=== PATIENT | female | born 1945 | race Caucasian/White ===

== ENCOUNTER 2019-08-26 08:02 | Emergency (ER) | payer MEDICARE, BC, SELFPAY ==
--- NOTE | 2019-08-26 08:16 | ED.FEMALEGU ---
HPI - Female Genitourinary General Chief complaint: Urogenital-Female Stated complaint: UTI Time Seen by Provider: 08/26/19 08:30 Source: patient and RN notes reviewed Mode of arrival: ambulatory Limitations: no limitations History of Present Illness HPI Narrative: 74-year-old female presents with concern for urinary urgency, dysuria, frequency that started on Monday. Reports at baseline she occasionally has minor urinary incontinence, reports the symptoms have worsened since Monday. She denies fever, abdominal pain, flank pain. Reports taking cranberry tablets that he is symptoms slightly. She denies abnormal vaginal discharge, abnormal vaginal bleeding. Denies nausea, vomiting. MD elicited complaint: UTI Related Data Home Medications Medication Instructions Recorded Confirmed atorvastatin 10 mg PO DAILY 08/26/19 08/26/19 levothyroxine 88 mcg PO DAILY 08/26/19 08/26/19 solifenacin 5 mg PO DAILY 08/26/19 08/26/19 Allergies Allergy/AdvReac Type Severity Reaction Status Date / Time tetracycline Allergy Severe NAUSEA/VOMI Verified 05/08/19 12:41 TING aspirin Allergy Unknown ITCHING Verified 05/08/19 12:41 AND HIVES azithromycin Allergy Unknown Nausea Verified 05/08/19 12:41 erythromycin base Allergy Unknown Rash Verified 08/26/19 08:25 Review of Systems Review of Systems: Narrative: CONSTITUTIONAL: Denies malaise, chills, sweats, or fever. CARDIOVASCULAR: Denies chest pain, palpitations, or edema. RESPIRATORY: Denies cough or dyspnea. GASTROINTESTINAL: Denies abdominal pain, nausea, vomiting, diarrhea, bloody, or mucous stools. GENITOURINARY: Reports dysuria, frequency, urgency, increased incontinence. Denies flank pain, abnormal vaginal discharge, vaginal bleeding or hematuria. MUSCULOSKELETAL: Denies back pain or myalgia. All systems reviewed & are unremarkable except as noted in HPI and below PMFSH Family History Family History (Updated 08/14/12 @ 08:28 by DOCTOR UNKNOWN) Other Cerebrovascular accident Diabetes mellitus Family history of arthritis Family history of cardiovascular disease Hypertension Social History Social History Smoking status: Never smoker Alcohol intake: current Comments At time of signature, agree with nursing past medical, surgical, social and family history. There is no relevant family history pertinent to the presenting complaint Exam Narrative: Exam Narrative: GENERAL: Well-appearing, well-nourished, and in no acute distress. HEAD: Normocephalic. EYES: PERRLA, conjunctivae clear. NECK: Supple. No lymphadenopathy CHEST: Clear to auscultation. No respiratory distress. HEART: Regular rate and rhythm. ABDOMEN: Soft, nontender upon palpation, nondistended, normal active bowel sounds, no palpable or pulsatile masses, no guarding. No CVA tenderness SKIN: Warm, dry, no rash. NEURO: Alert and oriented x3. PSYCH: Normal mood and affect Course Course Emergency Course: Patient is aware of diagnosis, understands and agrees to treatment plan. Anticipatory guidance given. Patient agrees to follow-up as directed and is aware of reasons to seek care at the emergency department. Portions of this record may have been created with voice recognition software Vital Signs Vital signs: Vital Signs Temperature 97.1 F L 08/26/19 08:25 Pulse Rate 57 L 08/26/19 08:25 Respiratory Rate 16 08/26/19 08:25 Blood Pressure 122/63 08/26/19 08:25 Pulse Oximetry 99 08/26/19 08:25 Temperature 97.1 F L 08/26/19 08:25 Pulse Rate 57 L 08/26/19 08:25 Respiratory Rate 16 08/26/19 08:25 Blood Pressure 122/63 08/26/19 08:25 Pulse Oximetry 99 08/26/19 08:25 Reviewed. MDM - Female Genitourinary MDM Narrative Medical decision making narrative: Exam findings and UA show no acute concerns or changes; patient is non-toxic appearing and is in no distress. Patient is appropriate for outpatient treatment and follow-up. Differential Diagnosis Different
[2019-08-26 08:25] VITALS: BP 122/63; PULSE 57; RESP 16; TEMP 36.2; O2SAT 99
== END 2019-08-26 08:47 | disposition home or self-care (01) ==
PROVIDERS: Emergency Provider Nurse Practitioner
DX: R30.0 Dysuria (principal); R35.0 Frequency of micturition; R39.15 Urgency of urination; E78.00 Pure hypercholesterolemia, unspecified; I10 Essential (primary) hypertension; M19.90 Unspecified osteoarthritis, unspecified site; Z96.651 Presence of right artificial knee joint; E03.9 Hypothyroidism, unspecified
CPT/HCPCS: 87077; 87086; 87088; 87186; 99213; G0463

== ENCOUNTER 2020-08-30 18:09 | Emergency (ER) | payer MEDICARE, BC, SELFPAY ==
--- NOTE | 2020-08-30 18:15 | ED.FEMALEGU ---
HPI - Female Genitourinary General Chief complaint: Urogenital-Female Stated complaint: bladder infection Time Seen by Provider: 08/30/20 18:15 Source: patient and old records reviewed Mode of arrival: ambulatory Limitations: no limitations History of Present Illness HPI Narrative: 75 yo female presents to the [facility] with complaints of I think I have a UTI. Patient reports yesterday she started with frequency and urgency. Today she had a small bout of nausea and suprapubic pressure/pain that has been intermittent. Denies fevers. No abdominal pain. No vomiting. No chest pain. No back pain. Related Data Home Medications Medication Instructions Recorded Confirmed atorvastatin 10 mg PO DAILY 08/26/19 08/30/20 levothyroxine 88 mcg PO DAILY 08/26/19 08/30/20 solifenacin 5 mg PO DAILY 08/26/19 08/30/20 Allergies Allergy/AdvReac Type Severity Reaction Status Date / Time tetracycline Allergy Severe NAUSEA/VOMI Verified 05/08/19 12:41 TING aspirin Allergy Unknown ITCHING Verified 05/08/19 12:41 AND HIVES azithromycin Allergy Unknown Nausea Verified 05/08/19 12:41 erythromycin base Allergy Unknown Rash Verified 08/26/19 08:25 Review of Systems Review of Systems: Narrative: CONSTITUTIONAL: Denies fever, chills, or sweats. CARDIOVASCULAR: Denies chest pain, palpitations, or edema. RESPIRATORY: Denies cough or dyspnea. GASTROINTESTINAL: Denies abdominal pain, vomiting, or diarrhea. Reports mild nausea at lunch today GENITOURINARY: Reports dysuria. denies hematuria. MUSCULOSKELETAL: Denies back pain, joint pain, or myalgia. NEUROLOGIC: Denies headache, numbness, or weakness. All other systems reviewed are negative, except as documented in HPI. [facility] Family History Family History Other Cerebrovascular accident Diabetes mellitus Family history of arthritis Family history of cardiovascular disease Hypertension Social History Social History Smoking status: Never smoker Alcohol intake: current Gender identity (if verbalized by the patient): Female Comments At the time of my signature, I reviewed and agree with the nursing past medical, surgical, social, and family history. There is no relevant family history pertinent to the patient complaint. Exam Narrative: Exam Narrative: GENERAL: This is a well-nourished, well-developed patient, in no apparent distress. HEAD: normocephalic, atraumatic. EYES: PERRL. Sclera clear/white. Vision is grossly intact. NECK: Neck supple, non-tender without lymphadenopathy. CARDIOVASCULAR: Regular rate and rhythm without murmurs, gallops, or rubs. RESPIRATORY: Clear to auscultation. Breath sounds equal bilaterally. No wheezes, rales, or rhonchi. GASTROINTESTINAL: Abdomen soft, non-tender, nondistended. No guarding SKIN: warm, intact with no suspicious lesions or rash, good texture and turgor. NEURO: awake, alert, and oriented to person, place and time. BACK: Nontender without deformity or crepitance. No CVA tenderness. Course Course Emergency Course: Discussed results with patient in regards to the urine, will send off for culture as well. Patient appears nontoxic, vitals are stable. Patient had no other complaints except for the urinary symptoms. Discussed treatment plan to include antibiotic which patient verbalized understanding Vital Signs Vital signs: Vital Signs Temperature 98 F 08/30/20 18:23 Pulse Rate 78 08/30/20 18:23 Respiratory Rate 20 08/30/20 18:23 Blood Pressure 115/89 08/30/20 18:23 Pulse Oximetry 98 08/30/20 18:23 Temperature 98 F 08/30/20 18:23 Pulse Rate 78 08/30/20 18:23 Respiratory Rate 20 08/30/20 18:23 Blood Pressure 115/89 08/30/20 18:23 Pulse Oximetry 98 08/30/20 18:23 Reviewed, within defined limits MDM - Female Genitourinary MDM Narrative Medical decision making narrative: Discharge instructi
[2020-08-30 18:23] VITALS: BP 115/89; PULSE 78; RESP 20; TEMP 36.6; O2SAT 98
== END 2020-08-30 18:39 | disposition home or self-care (01) ==
PROVIDERS: Emergency Provider Nurse Practitioner; PCP Internal Medicine
DX: N39.0 Urinary tract infection, site not specified (principal); E78.00 Pure hypercholesterolemia, unspecified; I10 Essential (primary) hypertension; M19.90 Unspecified osteoarthritis, unspecified site; E03.9 Hypothyroidism, unspecified
CPT/HCPCS: 81003; 87086; 87088; 99213; G0463

== ENCOUNTER 2021-06-27 12:02 | Emergency (ER) | payer MEDICARE, BC, SELFPAY ==
--- NOTE | ~2021-06-27 | XR_ITS ---
EXAMINATION: XR knee LT min 4V DATE: 06/27/2021 12:31 INDICATION: Left knee pain. Fall. TECHNIQUE: 4 views of left knee were obtained. COMPARISON: None. FINDINGS: Bone alignment is normal. No fracture. There is mild tricompartmental osteoarthritis. There is a moderate-sized knee joint effusion. IMPRESSION: 1. Mild left knee osteoarthritis. 2. Moderate-sized left knee joint effusion. Reviewed, dictated and finalized at location A. [employer]
[2021-06-27 12:15] VITALS: BP 141/104; PULSE 62; RESP 16; TEMP 36.6; O2SAT 100
--- NOTE | 2021-06-27 12:42 | ED.LOWEXIN ---
HPI - Extremity Injury (Lower) General Chief Complaint: Extremity Injury, Lower Stated Complaint: Lt Knee Pain due to fall Time Seen by Provider: 06/27/21 12:35 Source: patient, family, RN notes reviewed and old records reviewed Mode of arrival: ambulatory Limitations: no limitations History of Present Illness HPI Narrative: 76 year old female presents to [facility] using cane with complaint of sustaining a fall in her garage last night hitting her left knee. She reports that she thinks she missed the last step going into her garage and fell onto her left knee, denies hitting her head, no LOC, or any other known injuries. Patient has anterior left knee tenderness with some abrasions noted on her anterior left knee. She reports that pain is aggravated with bending and ambulation. MD complaint: knee injury (left) Type of Injury: blunt Place: home Treatments prior to arrival: cold therapy, NSAIDS and other (using brace to left knee) Related Data Home Medications Medication Instructions Recorded Confirmed atorvastatin 10 mg PO DAILY 08/26/19 06/27/21 levothyroxine 88 mcg PO DAILY 08/26/19 06/27/21 solifenacin 5 mg PO DAILY 08/26/19 06/27/21 trazodone 50 mg PO HS 06/27/21 06/27/21 Allergies Allergy/AdvReac Type Severity Reaction Status Date / Time tetracycline Allergy Severe NAUSEA/VOMI Verified 06/27/21 12:21 TING aspirin Allergy Intermediate ITCHING Verified 06/27/21 12:21 AND HIVES azithromycin Allergy Mild Nausea Verified 06/27/21 12:21 erythromycin base Allergy Mild Rash Verified 06/27/21 12:21 Review of Systems Review of Systems: CONSTITUTIONAL: Denies fever, chills, or sweats. EYES: Denies visual changes, redness, or discharge. ENT: Denies rhinorrhea, congestion, sore throat, or otalgia. CARDIOVASCULAR: Denies chest pain, palpitations, or edema. RESPIRATORY: Denies cough or dyspnea. GASTROINTESTINAL: Denies abdominal pain, nausea, vomiting, or diarrhea. GENITOURINARY: Denies dysuria or hematuria. SKIN: Denies rash or itching. MUSCULOSKELETAL: Chronic back pain, left knee joint pain, or myalgia. NEUROLOGIC: Denies headache, numbness, or weakness. PSYCHIATRIC: Denies anxiety or depression. All systems reviewed & are unremarkable except as noted in HPI and below PMFSH Past Medical History Medical History (Updated 06/30/21 @ 07:35 by Yady Farah NP) Arthritis Back pain Cataracts, both eyes Chronic right hip pain Elevated cholesterol Hypothyroid Kidney stones Trochanteric bursitis, right hip Surgical History Surgical History (Updated 06/30/21 @ 07:21 by Yady Farah NP) H/O repair of left rotator cuff H/O tubal ligation History of cholecystectomy History of tonsillectomy History of total right knee replacement (TKR) Status post right rotator cuff repair Family History Family History Other Cerebrovascular accident Diabetes mellitus Family history of arthritis Family history of cardiovascular disease Hypertension Social History Social History (Updated 06/30/21 @ 07:22 by Yady Farah NP) Smoking status: Never smoker Alcohol intake: current Alcohol use details: rare social Substance use: never Living arrangements: with family Gender identity (if verbalized by the patient): Female Comments At time of signature, agree with nursing past medical, surgical, social and family history. There is no relevant family history pertinent to the presenting complaint Exam Narrative: GENERAL: Well-appearing, well-nourished, and in no acute distress. HEAD: Normocephalic, atraumatic. EYES: PERRLA and EOMI. ENT: Nares clear, no rhinorrhea or epistaxis. Mucous membranes moist.TM's normal with good light reflex, throat pink with no lesions or exudates, tonsils absent NECK: Supple.no lymphadenopathy CHEST: Clear to auscultation. No respiratory distress.SAO2 100% on room air HEART: Regular rate and rhythm. No murmur
[2021-06-27 13:00] VITALS: BP 138/60
== END 2021-06-27 13:09 | disposition home or self-care (01) ==
PROVIDERS: Emergency Provider Registered Nurse; PCP Internal Medicine
DX: M25.462 Effusion, left knee (principal); S80.02XA Contusion of left knee, initial encounter; W19.XXXA Unspecified fall, initial encounter; M19.90 Unspecified osteoarthritis, unspecified site; E78.00 Pure hypercholesterolemia, unspecified; E03.9 Hypothyroidism, unspecified; Z96.651 Presence of right artificial knee joint; H26.9 Unspecified cataract
CPT/HCPCS: 73564; 99213; G0463

== ENCOUNTER 2022-06-17 11:53 | Emergency (ER) | payer MEDICARE, BC, SELFPAY ==
--- NOTE | 2022-06-17 12:07 | ED.URI ---
HPI - URI/Sore Throat General Chief Complaint: Upper Respiratory Infection Stated Complaint: cough,runny nose Time Seen by Provider: 06/17/22 12:18 Source: patient, RN notes reviewed and old records reviewed Mode of arrival: ambulatory Limitations: no limitations History of Present Illness HPI Narrative: 77-year-old presents to the [facility] complaints of cough and right nose for almost 2 weeks. States several days ago she had 1 episode vomiting diarrhea but none since. Denies any fevers, shortness of breath, chest pain. Related Data Home Medications Medication Instructions Recorded Confirmed atorvastatin 10 mg tablet 10 mg PO DAILY 08/26/19 06/17/22 levothyroxine 88 mcg tablet 88 mcg PO DAILY 08/26/19 06/17/22 solifenacin 5 mg tablet 5 mg PO DAILY 08/26/19 06/17/22 benzonatate 200 mg capsule 200 mg PO DAILY 06/17/22 06/17/22 Allergies Allergy/AdvReac Type Severity Reaction Status Date / Time tetracycline Allergy Severe NAUSEA/VOMI Verified 06/17/22 12:17 TING aspirin Allergy Intermediate ITCHING Verified 06/17/22 12:17 AND HIVES azithromycin Allergy Mild Nausea Verified 06/17/22 12:17 erythromycin base Allergy Mild Rash Verified 06/17/22 12:17 Review of Systems Review of Systems: All systems reviewed & are unremarkable except as noted in HPI and below Constitutional: Constitutional: Reports no additional constitutional complaints Eyes: Eyes: Reports no additional eye complaints ENT: Reports as per HPI and Reports nasal congestion Cardiovascular: Cardiovascular: Reports no additional cardiovascular complaints, Denies chest pain and Denies dyspnea Respiratory: Respiratory: Reports as per HPI, Denies chest congestion, Reports cough and Denies dyspnea Gastrointestinal: Gastrointestinal: Reports no additional gastrointestinal complaints, Denies abdominal pain, Denies nausea and Denies vomiting Musculoskeletal: Musculoskeletal: Reports no additional musculoskeletal complaints Integumentary/Breasts: Skin/Breast: Reports system reviewed and no additional complaints, except as docu Neurologic: Reports system reviewed and no additional complaints, except as documented Psychiatric: Psychiatric: Reports no additional psychiatric complaints Allergic/Immunologic: Allergic/Immunologic: Reports no additional allergic/immunologic complaints PMFSH Past Medical History Medical History Arthritis Back pain Cataracts, both eyes Chronic right hip pain Elevated cholesterol Hypothyroid Kidney stones Trochanteric bursitis, right hip Surgical History Surgical History H/O repair of left rotator cuff H/O tubal ligation History of cholecystectomy History of tonsillectomy History of total right knee replacement (TKR) Status post right rotator cuff repair Status post total right knee replacement Family History Family History Other Cerebrovascular accident Diabetes mellitus Family history of arthritis Family history of cardiovascular disease Hypertension Social History Social History Alcohol intake: current Alcohol use details: rare social Substance use: never Gender identity (if verbalized by the patient): Female Comments At the time of my signature, I reviewed and agree with the nursing past medical, surgical, social, and family history. There is no relevant family history pertinent to the patient complaint. Exam Const: General: cooperative, healthy appearing, comfortable, no acute distress, well developed, alert, average body habitus and well nourished Nutritional Appearance: average body habitus and well nourished Orientation/consciousness: patient oriented x3 Limitations: no limitations HENMT: Head: normal to inspection Ears: hearing grossly normal bilaterally and e
[2022-06-17 12:11] VITALS: BP 104/60; PULSE 64; RESP 18; TEMP 36.2; O2SAT 100
== END 2022-06-17 12:31 | disposition home or self-care (01) ==
PROVIDERS: Emergency Provider Nurse Practitioner; PCP Internal Medicine
DX: J40 Bronchitis, not specified as acute or chronic (principal); E03.9 Hypothyroidism, unspecified
CPT/HCPCS: 99213; G0463

== ENCOUNTER 2022-07-30 11:28 | Emergency (ER) | payer MEDICARE, BC, SELFPAY ==
[2022-07-30 11:50] VITALS: BP 110/60; PULSE 92; RESP 18; TEMP 37.3; O2SAT 99
--- NOTE | 2022-07-30 12:37 | ED.URI ---
HPI - URI/Sore Throat General Chief Complaint: Upper Respiratory Infection Stated Complaint: Cough,Sore Throat Time Seen by Provider: 07/30/22 12:00 Source: patient Mode of arrival: ambulatory Limitations: no limitations History of Present Illness HPI Narrative: Asya is a 77-year-old female patient presenting to clinic today with complaints of cough and sore throat x3 days. She reports that she has been exposed to her grandson has had strep. She is concerned that she may have strep. She denies any fever but does have some chills and body aches. MD elicited complaint: cough, sore throat and nasal congestion Related Data Home Medications Medication Instructions Recorded Confirmed atorvastatin 10 mg tablet 10 mg PO DAILY 08/26/19 07/30/22 levothyroxine 88 mcg tablet 88 mcg PO DAILY 08/26/19 07/30/22 solifenacin 5 mg tablet 5 mg PO DAILY 08/26/19 07/30/22 Allergies Allergy/AdvReac Type Severity Reaction Status Date / Time tetracycline Allergy Severe NAUSEA/VOMI Verified 07/30/22 11:58 TING aspirin Allergy Intermediate ITCHING Verified 07/30/22 11:58 AND HIVES azithromycin Allergy Mild Nausea Verified 07/30/22 11:58 erythromycin base Allergy Mild Rash Verified 07/30/22 11:58 Review of Systems Review of Systems: Pertinent positives per HPI. Patient denies any fever, rash, headache, visual changes, dizziness, cough, shortness of breath, chest pain, palpitations, nausea, vomiting, diarrhea, constipation, abdominal pain, or any urinary issues. [facility] Past Medical History Medical History Arthritis Back pain Cataracts, both eyes Chronic right hip pain Elevated cholesterol Hypothyroid Kidney stones Trochanteric bursitis, right hip Surgical History Surgical History H/O repair of left rotator cuff H/O tubal ligation History of cholecystectomy History of tonsillectomy History of total right knee replacement (TKR) Status post right rotator cuff repair Status post total right knee replacement Family History Family History Other Cerebrovascular accident Diabetes mellitus Family history of arthritis Family history of cardiovascular disease Hypertension Social History Social History Alcohol intake: current Alcohol use details: rare social Substance use: never Living arrangements: with family Gender identity (if verbalized by the patient): Female Comments At the time of my signature, I reviewed and agree with the nursing past medical, surgical, social, and family history. There is no relevant family history pertinent to the patient complaint. Exam Narrative: General: Well-developed, well nourished, in no apparent distress Head: Normocephalic, atraumatic Eyes: Pupils equally round and reactive to light bilaterally, EOM intact, sclera and conjunctive clear, no discharge, lids normal Ears: TMs intact and clear, ear canals clear, no drainage, grossly hearing normal. Nose: Nares patent, clear nasal discharge, no inflammation, no sinus tenderness. Mouth: Oral pharynx without lesions or masses, good dentition, MMM. Postnasal drip, oropharynx red Neck: Supple, trachea midline, mild enlargement of anterior cervical nodes, no thyroid masses or goiter palpable. Cardio: Regular rate and rhythm, s1 and s2 normal, systolic murmur grade 3/6 appreciated. Resp: Clear to auscultation bilaterally, no rhonchi, rales, wheezing or rubs Course Course Emergency Course: Portions of this record may have been created with voice recognition software. Level of Care: Express Care Visit Vital Signs Vital signs: Vital Signs Temperature 37.3 C 07/30/22 11:50 Pulse Rate 92 07/30/22 11:50 Respiratory Rate 18 07/30/22 11:50 Blood Pressure 110/60 07/30/22 11
== END 2022-07-30 12:46 | disposition home or self-care (01) ==
PROVIDERS: Emergency Provider Nurse Practitioner Family; PCP Internal Medicine
DX: U07.1 COVID-19 (principal); M19.90 Unspecified osteoarthritis, unspecified site; E78.00 Pure hypercholesterolemia, unspecified; E03.9 Hypothyroidism, unspecified; H26.9 Unspecified cataract; Z96.651 Presence of right artificial knee joint
CPT/HCPCS: 87081; 87426; 87880; 99213; C9803; G0463

== ENCOUNTER 2023-05-20 09:24 | Emergency (ER) | payer MEDICARE, BC, SELFPAY ==
[2023-05-20 10:02] VITALS: BP 124/61; PULSE 67; RESP 20; TEMP 36.4; O2SAT 100
--- NOTE | 2023-05-20 10:12 | ED.URI ---
HPI - URI/Sore Throat General Chief Complaint: Upper Respiratory Infection Stated Complaint: cough,congestion Time Seen by Provider: 05/20/23 10:05 Source: patient Mode of arrival: ambulatory Limitations: no limitations History of Present Illness HPI Narrative: Asya is a 77-year-old female patient presenting to the clinic today with complaints of cough and congestion x1 week. She denies any shortness of breath or chest pain currently. Denies any fever or chills. MD elicited complaint: sore throat and nasal congestion Related Data Home Medications Medication Instructions Recorded Confirmed atorvastatin 10 mg tablet 10 mg PO DAILY 08/26/19 07/30/22 levothyroxine 88 mcg tablet 88 mcg PO DAILY 08/26/19 07/30/22 solifenacin 5 mg tablet 5 mg PO DAILY 08/26/19 07/30/22 Allergies Allergy/AdvReac Type Severity Reaction Status Date / Time tetracycline Allergy Severe NAUSEA/VOMI Verified 07/30/22 11:58 TING aspirin Allergy Intermediate ITCHING Verified 07/30/22 11:58 AND HIVES azithromycin Allergy Mild Nausea Verified 07/30/22 11:58 erythromycin base Allergy Mild Rash Verified 07/30/22 11:58 Review of Systems Review of Systems: Pertinent positives per HPI. Patient denies any fever, chills, rash, headache, visual changes, dizziness,shortness of breath, chest pain, palpitations, nausea, vomiting, diarrhea, constipation, abdominal pain, or any urinary issues. COUNT INCLUDES [facility] Past Medical History Medical History Arthritis Back pain Cataracts, both eyes Chronic right hip pain Elevated cholesterol Hypothyroid Kidney stones Trochanteric bursitis, right hip Surgical History Surgical History H/O repair of left rotator cuff H/O tubal ligation History of cholecystectomy History of tonsillectomy History of total right knee replacement (TKR) Status post right rotator cuff repair Status post total right knee replacement Family History Family History Other Cerebrovascular accident Diabetes mellitus Family history of arthritis Family history of cardiovascular disease Hypertension Social History Social History Alcohol intake: current Alcohol use details: rare social Substance use: never Living arrangements: with family Gender identity (if verbalized by the patient): Female Comments At the time of my signature, I reviewed and agree with the nursing past medical, surgical, social, and family history. There is no relevant family history pertinent to the patient complaint. Exam Narrative: General: Well-developed, well nourished, in no apparent distress Head: Normocephalic, atraumatic Eyes: Pupils equally round and reactive to light bilaterally, EOM intact, sclera and conjunctive clear, no discharge, lids normal Ears: TMs intact and congested, ear canals clear, no drainage, grossly hearing normal. Nose: Nares patent, clear nasal discharge, no inflammation, no sinus tenderness. Mouth: Oral pharynx without lesions or masses, good dentition, MMM. Postnasal drip Neck: Supple, trachea midline, no enlargement of anterior or posterior cervical nodes, no thyroid masses or goiter palpable. Cardio: Regular rate and rhythm, s1 and s2 normal, no murmur appreciated. Resp: Clear to auscultation bilaterally, no rhonchi, rales, wheezing or rubs Course Course Emergency Course: Portions of this record may have been created with voice recognition software. Level of Care: Express Care Visit Vital Signs Vital signs: Vital Signs Temperature 36.4 C L 05/20/23 10:02 Pulse Rate 67 05/20/23 10:02 Respiratory Rate 20 05/20/23 10:02 Blood Pressure 124/61 05/20/23 10:02 Pulse Oximetry 100 05/20/23 10:02 Oxygen Delivery Room Air 05/20/23 10:02 Temperature
== END 2023-05-20 10:22 | disposition home or self-care (01) ==
PROVIDERS: Emergency Provider Nurse Practitioner Family; PCP Internal Medicine
DX: J06.9 Acute upper respiratory infection, unspecified (principal); E03.9 Hypothyroidism, unspecified
CPT/HCPCS: 99213; G0463

== ENCOUNTER 2023-05-28 10:16 | Emergency (ER) | payer MEDICARE, BC, SELFPAY ==
--- NOTE | ~2023-05-28 | XR_ITS ---
EXAMINATION: XR chest 2V DATE: 05/28/2023 11:42 INDICATION: Cough. TECHNIQUE: Frontal and lateral views of the chest were obtained. COMPARISON: Chest 2 views 02/22/2017 FINDINGS: There is no pneumonia, pleural effusion, or pneumothorax. The heart size is normal. There a re suture anchors in the humeral heads. IMPRESSION: 1. No acute cardiopulmonary disease. Reviewed, dictated and finalized at location A. ER MANAGER
[2023-05-28 11:00] VITALS: BP 125/69; PULSE 74; RESP 16; TEMP 36.3; O2SAT 100
[2023-05-28 11:06] VITALS: BP 125/69; PULSE 74; RESP 16; TEMP 36.3; O2SAT 100
--- NOTE | 2023-05-28 11:23 | ED.GENADULT ---
HPI - General Adult General Chief complaint: Upper Respiratory Infection Stated complaint: cough Time Seen by Provider: 05/28/23 11:23 Source: patient Mode of arrival: ambulatory Limitations: no limitations History of Present Illness HPI narrative: 78-year-old female [facility] with persistent cough that started 2 weeks ago. She reported to the urgent care on 05/20 and was prescribed prednisone and Tessalon Perles. Patient states that the cough has been persistent despite treatment and she has been having increased shortness of breath at rest. patient reports that she is due to have a cardiac procedure on Tuesday 06/05 and she has had shortness of breath easily with her heart problems but has gotten worse over the last week. patient has not taken anything else at this time besides what she has been prescribed on 05/20. patient denies fever, chills, body aches, chest pain and diarrhea. patient states she is scheduled for a cardiac catheterization on 06/05 for aortic stenosis. Related Data Home Medications Medication Instructions Recorded Confirmed atorvastatin 10 mg tablet 10 mg PO DAILY 08/26/19 05/28/23 levothyroxine 88 mcg tablet 88 mcg PO DAILY 08/26/19 05/28/23 solifenacin 5 mg tablet 5 mg PO DAILY 08/26/19 05/28/23 omeprazole 40 mg capsule,delayed 40 mg PO DAILY 05/28/23 05/28/23 release Allergies Allergy/AdvReac Type Severity Reaction Status Date / Time azithromycin AdvReac Intermediate Nausea Verified 05/28/23 11:03 tetracycline AdvReac Intermediate NAUSEA/VOMI Verified 05/28/23 11:03 TING aspirin AdvReac Mild ITCHING Verified 05/28/23 11:03 AND HIVES erythromycin base AdvReac Mild Rash Verified 05/28/23 11:03 Review of Systems Review of Systems: CONSTITUTIONAL: Denies fever, chills, or sweats. EYES: Denies visual changes, redness, or discharge. ENT: Denies rhinorrhea, congestion, sore throat, or otalgia. CARDIOVASCULAR: Denies chest pain, palpitations, or edema. RESPIRATORY: positive cough has remained constant and dyspnea that has worsened over the last week. GASTROINTESTINAL: Denies abdominal pain, nausea, vomiting, or diarrhea. GENITOURINARY: Denies dysuria or hematuria. SKIN: Denies rash or itching. MUSCULOSKELETAL: Denies back pain, joint pain, or myalgia. NEUROLOGIC: Denies headache, numbness, or weakness. PSYCHIATRIC: Denies anxiety or depression. [facility] Past Medical History Medical History Arthritis Back pain Cataracts, both eyes Chronic right hip pain Elevated cholesterol Hypothyroid Kidney stones Trochanteric bursitis, right hip Surgical History Surgical History H/O repair of left rotator cuff H/O tubal ligation History of cholecystectomy History of tonsillectomy History of total right knee replacement (TKR) Status post right rotator cuff repair Status post total right knee replacement Family History Family History Other Cerebrovascular accident Diabetes mellitus Family history of arthritis Family history of cardiovascular disease Hypertension Social History Social History Alcohol intake: current Alcohol use details: rare social Substance use: never Living arrangements: with family Gender identity (if verbalized by the patient): Female Comments At the time of my signature I agree with nursing past medical history, surgical, social, and family history. There is no relevant family history pertinent to the presenting complaint. Exam Narrative: GENERAL: Well-appearing, well-nourished, and in no acute distress. HEAD: Normocephalic, atraumatic. EYES: PERRLA and EOMI. ENT: Nares clear, no rhinorrhea or epistaxis. Mucous membranes moist. NECK: Supple. No lymphadenopathy CHEST: positive shortness of breath at r
--- NOTE | 2023-05-28 12:18 | ECG_ITS ---
Measurements Intervals [place] Rate: 65 P: 65 [place]: 134 QRS: 31 QRSD: 86 T: 75 QT: 400 QTc: 416 Interpretive Statements SINUS RHYTHM DELAYED PRECORDIAL R/S TRANSITION BORDERLINE ECG NO PREVIOUS ECG AVAILABLE FOR COMPARISON Electronically Signed On 05-28-2023 14:31:38 FENCE SETTER by Negro Grady D.O.
== END 2023-05-28 12:30 | disposition home or self-care (01) ==
PROVIDERS: Emergency Provider Nurse Practitioner Family; PCP Internal Medicine
DX: J40 Bronchitis, not specified as acute or chronic (principal); E03.9 Hypothyroidism, unspecified; Z79.899 Other long term (current) drug therapy
CPT/HCPCS: 71046; 93005; 99213; G0463

== ENCOUNTER 2023-05-30 13:25 | Outpatient (CLI) | payer MEDICARE, BC, SELFPAY ==
[2023-05-30 14:00] LABS: Hematocrit 39.7 % (37.0-47.0); Hemoglobin 13.8 g/dL (12.0-15.0); Mean Corpuscular HGB Conc 34.8 g/dl (32-36); Mean Corpuscular Hemoglobin 32.9 pg (26-34); Mean Corpuscular Volume 94.7 fl (80-100); Mean Platelet Volume 9.2 fl (7.4-10.4); Platelet Count Result 198 k/mm3 (150-375); Red Blood Count 4.19 M/mm3 (4.2-5.4); Red Cell Distribution Width 12.1 % (11.5-14.5); White Blood Count 5.9 K/mm3 (4.5-10.0)
[2023-05-30 14:11] LABS: Anion Gap 9 mmol/L (8-16); Blood Urea Nitrogen 16 mg/dL (7-17); Calcium 9.1 mg/dL (8.4-10.2); Carbon Dioxide 26 mmol/L (22-30); Chloride 105 mmol/L (98-107); Estimated Glomerular Filt Rate > 60; Glucose 121 mg/dL (65-110); Sodium 140 mmol/L (137-145)
== END 2023-05-30 13:26 | disposition home or self-care (01) ==
LOC: ANHLAB 13:29
PROVIDERS: PCP Internal Medicine; Visit Provider Internal Medicine Interventional Cardiology
DX: I35.0 Nonrheumatic aortic (valve) stenosis (principal)
CPT/HCPCS: 36415; 80048; 85027

== ENCOUNTER 2023-10-30 12:54 | Emergency (ER) | payer MEDICARE, BC, SELFPAY ==
[2023-10-30] VITALS (19 sets, daily range): BP systolic 78–111; BP diastolic 55–76; PULSE 65–89; RESP 12–20; TEMP 36.4; O2SAT 96–100
--- NOTE | ~2023-10-30 | CT_ITS ---
EXAMINATION: CTA chest PE protocol DATE: 10/30/2023 15:38 INDICATION: Syncopal episode. TECHNIQUE: Computed tomography (CT) pulmonary angiogram of the chest was performed with 100 mL Omnipa que-350 intravenous contrast. Additional 3D reconstructions utilizing coronal maximum intensity proje ction (MIP) were performed. Automated exposure control and iterative reconstruction technique were em ployed. The dose-length product was 195.11 mGy-cm. COMPARISON: None FINDINGS: No pulmonary embolism. Elevation of left hemidiaphragm with left basilar compressive atelectasis. No pneumonia, pulmonary edema, pleural effusion or pneumothorax. Heart size is normal. Atherosclerotic c oronary artery calcification is unchanged prior median sternotomy and coronary artery bypass grafting . There are also changes of prior aortic valve repair. There are retained epicardial pacemaker leads. No pericardial effusion. Thoracic aorta is normal in caliber with no dissection. No pathologically e nlarged thoracic lymphadenopathy. 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 Mild thoracic spondylosis. IMPRESSION: 1. Elevation the left hemidiaphragm with mild left basilar atelectasis. No pulmonary embolism or othe r acute cardiopulmonary disease. Reviewed, dictated and finalized at location A. IMPRESSION: 1. Elevation the left hemidiaphragm with mild left basilar atelectasis. No pulm onary embolism or other acute cardiopulmonary disease.
--- NOTE | ~2023-10-30 | XR_ITS ---
XR chest 2V 10/30/2023 13:17 Indication: Syncope. Lightheadedness. Procedure: 2 view chest Comparison: No prior studies for comparison. Findings: Status post median sternotomy for CABG. There is a prosthetic aortic valve. Small left pleu ral effusion. No focal pneumonia, edema or pneumothorax. No acute osseous abnormality. Impression: 1: Small left pleural effusion. Reviewed, dictated and finalized at location B. Impression: 1: Small left pleural effusion.
--- NOTE | 2023-10-30 13:01 | ECG_ITS ---
SEE SCANNED COPY FOR CONFIRMED REPORT MTDD
--- NOTE | 2023-10-30 13:16 | ED.GENADULT ---
HPI - General Adult General Chief complaint: Syncope Stated complaint: syncope Time Seen by Provider: 10/30/23 13:01 History of Present Illness HPI narrative: Patient is a 78-year-old female who presents ER after having a near syncopal episode. She was at a local restaurant when she developed sudden pain in her left posterior shoulder. She became lightheaded and clammy/sweaty. She did not lose consciousness. Her friends called EMS for her to be evaluated. She denies any chest pain. Her pain has resolved without any modifying medication or movements. 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 She does not require anticoagulation. No leg pain or swelling. No pain with deep breath. Related Data Home Medications Medication Instructions Recorded Confirmed atorvastatin 10 mg tablet 10 mg PO DAILY 08/26/19 05/28/23 levothyroxine 88 mcg tablet 88 mcg PO DAILY 08/26/19 05/28/23 solifenacin 5 mg tablet 5 mg PO DAILY 08/26/19 05/28/23 omeprazole 40 mg capsule,delayed 40 mg PO DAILY 05/28/23 05/28/23 release acetaminophen 325 mg tablet 650 mg PO Q6H PRN pain rated 5 or 08/23/23 08/23/23 less aspirin 81 mg chewable tablet 81 mg PO DAILY 08/23/23 08/23/23 (Aspirin Childrens) atorvastatin 10 mg tablet 10 mg PO DAILY 08/23/23 08/23/23 cholecalciferol (vitamin D3) 50 2,000 unit PO DAILY 08/23/23 08/23/23 mcg (2,000 unit) tablet cyclosporine 0.05 % eye drops in a 1 drp EACH EYE BID 08/23/23 08/23/23 dropperette (Restasis) docusate sodium 100 mg capsule 100 mg PO DAILY PRN 08/23/23 08/23/23 Constipation-2nd line levothyroxine 75 mcg tablet 75 mcg PO DAILY@0630 08/23/23 08/23/23 pantoprazole 40 mg tablet,delayed 40 mg PO QAM 08/23/23 08/23/23 release polyethylene glycol 3350 17 gram 17 g PO DAILY PRN constipation- 08/23/23 08/23/23 oral powder packet 1st line solifenacin 5 mg tablet 5 mg PO DAILY 08/23/23 08/23/23 Allergies Allergy/AdvReac Type Severity Reaction Status Date / Time azithromycin AdvReac Intermediate Nausea Verified 10/30/23 16:25 tetracycline AdvReac Intermediate NAUSEA/VOMI Verified 10/30/23 16:25 TING aspirin AdvReac Mild ITCHING Verified 10/30/23 16:25 AND HIVES erythromycin base AdvReac Mild Rash Verified 10/30/23 16:25 Review of Systems Review of Systems: All systems reviewed & are unremarkable except as noted in HPI and below Constitutional: Constitutional: Reports no additional constitutional complaints ENT: Reports system reviewed and no additional complaints, except as documented Cardiovascular: Cardiovascular: Reports no additional cardiovascular complaints Respiratory: Respiratory: Reports no additional respiratory complaints Gastrointestinal: Gastrointestinal: Reports no additional gastrointestinal complaints Musculoskeletal: Musculoskeletal: Reports back pain, Denies arthralgias, Denies joint swelling and Reports muscle cramps Neurologic: Denies headache(s), Denies focal weakness and Denies numbness Comments: Lightheaded PMFSH Past Medical History Medical History Arthritis Back pain Cataracts, both eyes Chronic right hip pain Elevated cholesterol Hypothyroid Kidney stones Trochanteric bursitis, right hip Surgical History Surgical History H/O repair of left rotator cuff H/O tubal ligation History of cholecystectomy History of tonsillectomy History of total right knee replacement (TKR) Status post right rotator cuff repair Status post total right knee replacement Family History Family History (System 10/30/23 @ 16:25 by Cecil Mena) Mother Cerebrovascular accident Father Diabetes mellitus Sibling Diabetes mellitus Mother Family history of cardiovascular disease Sibling Hypertension Mother Alzheimer disease Father Heart disease Hear
[2023-10-30] MEDS: SODIUM CHLORIDE 0.9% IV 1,000 ML 999 ML IV CONT (13:32)
[2023-10-30 13:45] LABS: Basophils Absolute Auto 0.1 K/mm3 (0.0-0.1); Basophils Percent Auto 0.7 % (0.2-1.2); Eosinophils Absolute Auto 0.1 K/mm3 (0-0.3); Eosinophils Percent Auto 0.7 % (0-4.4); Hematocrit 37.6 % (37.0-47.0); Hemoglobin 12.1 g/dL (12.0-15.0); Immature Granulocyte Absolute 0.02 K/mm3 (0.00-0.031); Immature Granulocyte Percent A 0.3 % (0-0.5); Mean Corpuscular HGB Conc 32.2 g/dl (32-36); Mean Corpuscular Hemoglobin 29.7 pg (26-34); Mean Corpuscular Volume 92.4 fl (80-100); Mean Platelet Volume 9.5 fl (7.4-10.4); Monocytes Absolute Auto 0.6 K/mm3 (0.1-0.6); Monocytes Percent Auto 8.5 % (2.6-8.5); Neutrophils Absolute Auto 5.2 K/mm3 (1.3-6.7); Neutrophils Percent Auto 72.8 % (45.5-73.1); Platelet Count Result 172 k/mm3 (150-375); Red Blood Count 4.07 M/mm3 (4.2-5.4); White Blood Count 7.1 K/mm3 (4.5-10.0)
[2023-10-30 14:00] LABS: INR 1.2; Prothrombin Time 15.2 Seconds (11.1-14.7)
[2023-10-30 14:01] LABS: Partial Thromboplastin Time 25.2 Seconds (22.3-36.8)
[2023-10-30 14:15] LABS: Troponin I < 0.012 ng/mL (0.000-0.034)
[2023-10-30 15:19] LABS: Alanine Aminotransferase 13 U/L (6-35); Albumin Level 4.3 g/dL (3.5-5.1); Alkaline Phosphatase 129 U/L (38-126); Anion Gap 11 mmol/L (4-12); Aspartate Amino Transferase 30 U/L (14-36); Bilirubin,Total 0.9 mg/dL (0.2-1.3); Blood Urea Nitrogen 12 mg/dL (7-17); Calcium 9.5 mg/dL (8.4-10.2); Carbon Dioxide 20 mmol/L (22-30); Chloride 110 mmol/L (98-107); Estimated CRCL calculation 36 ml/min; Estimated Glomerular Filt Rate > 60; Glucose 119 mg/dL (65-110); Potassium 3.7 mmol/L (3.4-5.0); Sodium 141 mmol/L (137-145)
[2023-10-30 16:02] LABS: Appearance Urine Clear (Clear); Bacteria Urine None Seen /hpf; Bilirubin Urine Negative (Negative); Blood Urine Negative (Negative); Color Urine Yellow (Yellow); Glucose Urine UA Negative (Negative); Ketones Urine Trace mg/dL (Negative); Leukocyte Esterase Ur 1+ LEU/UL (Negative); Need Manual Microscopic Reviewed; Nitrate Urine Negative (Negative); Non Pathogenic Casts 0-2; Protein Urine Negative (Negative); RBC Urine 0-2 /hpf (0-2); Squamous Epithelial Cell Urine Occasional /hpf (Few); Urobilinogen Urine 0.2 mg/dL (<2.0); WBC Urine 0-5 /hpf (0-3); pH Urine 5.5 (5.0-9.0)
[2023-10-30 16:03] LABS: Specific Grav Ur 1.034 (1.001-1.035)
[2023-10-30 16:04] LABS: Add Urine Microscopic? YES
[2023-10-30 16:48] LABS: Troponin I < 0.012 ng/mL (0.000-0.034)
--- NOTE | 2023-10-30 17:20 | PC.NURSE ---
Patient ambulated around department with steady gate
== END 2023-10-30 17:37 | disposition home or self-care (01) ==
PROVIDERS: Emergency Provider Emergency Medicine; PCP Internal Medicine
DX: R55 Syncope and collapse (principal); R25.2 Cramp and spasm; M19.90 Unspecified osteoarthritis, unspecified site; E03.9 Hypothyroidism, unspecified; Z87.442 Personal history of urinary calculi
CPT/HCPCS: 36415; 71046; 71275; 80053; 81001; 84484; 85025; 85610; 85730; 93005; 96360; 99284; J7030; Q9967

== ENCOUNTER 2023-12-27 11:15 | Outpatient (RCR) | payer MEDICARE, BC, SELFPAY ==
[2023-09-29 15:57] VITALS: PULSE 74
== END 2023-12-27 16:54 | disposition home or self-care (01) ==
LOC: ANHCPREHAB 11:15
PROVIDERS: PCP Internal Medicine; Visit Provider Internal Medicine Cardiovascular Disease
DX: Z95.2 Presence of prosthetic heart valve (principal); Z95.1 Presence of aortocoronary bypass graft
CPT/HCPCS: 93798

== ENCOUNTER 2024-03-08 09:03 | Emergency (ER) | payer MEDICARE, BC, SELFPAY ==
[2024-03-08 09:29] VITALS: BP 98/54; PULSE 84; RESP 18; TEMP 37.1; O2SAT 100
[2024-03-08 09:31] VITALS: BP 98/54; PULSE 84; RESP 18; TEMP 37.1; O2SAT 100
[2024-03-08 09:41] LABS: EDINFLUASCREEN Negative; EDINFLUBSCREEN Negative
--- NOTE | 2024-03-08 10:07 | ED.URI ---
HPI - URI/Sore Throat General Chief Complaint: Upper Respiratory Infection Stated Complaint: Coughing / SOB Time Seen by Provider: 03/08/24 09:45 Source: patient Mode of arrival: ambulatory Limitations: no limitations History of Present Illness HPI Narrative: 78-year-old female presents with complaint of fatigue, headache, congestion and cough for 2 days. Afebrile. No chest pain or shortness of breath. Patient concern for COVID. All systems reviewed and negative except as noted above. Related Data Home Medications Medication Instructions Recorded Confirmed atorvastatin 10 mg tablet 10 mg PO DAILY 08/26/19 05/28/23 omeprazole 40 mg capsule,delayed 40 mg PO DAILY 05/28/23 05/28/23 release acetaminophen 325 mg tablet 650 mg PO Q6H PRN pain rated 5 or 08/23/23 08/23/23 less aspirin 81 mg chewable tablet 81 mg PO DAILY 08/23/23 08/23/23 (Aspirin Childrens) cholecalciferol (vitamin D3) 50 2,000 unit PO DAILY 08/23/23 08/23/23 mcg (2,000 unit) tablet cyclosporine 0.05 % eye drops in a 1 drp EACH EYE BID 08/23/23 08/23/23 dropperette (Restasis) levothyroxine 75 mcg tablet 75 mcg PO DAILY@0630 08/23/23 08/23/23 Allergies Allergy/AdvReac Type Severity Reaction Status Date / Time aspirin Allergy Mild ITCHING Verified 03/08/24 09:27 AND HIVES erythromycin base Allergy Mild Rash Verified 03/08/24 09:27 azithromycin AdvReac Intermediate Nausea Verified 03/08/24 09:27 tetracycline AdvReac Intermediate NAUSEA/VOMI Verified 03/08/24 09:27 TING Review of Systems Review of Systems: CONSTITUTIONAL: Denies fever, chills, or sweats. Reports fatigue. EYES: Denies visual changes, redness, or discharge. ENT: reports rhinorrhea, congestion. Denies sore throat, or otalgia. CARDIOVASCULAR: Denies chest pain, palpitations, or edema. RESPIRATORY: Reports cough. Denies dyspnea. GASTROINTESTINAL: Denies abdominal pain, nausea, vomiting, or diarrhea. GENITOURINARY: Denies dysuria or hematuria. SKIN: Denies rash or itching. MUSCULOSKELETAL: Denies back pain, joint pain, or myalgia. NEUROLOGIC: Denies headache, numbness, or weakness. PSYCHIATRIC: Denies anxiety or depression. All other systems reviewed are negative, except as documented in HPI. [facility] Past Medical History Medical History Arthritis Back pain Cataracts, both eyes Chronic right hip pain Elevated cholesterol Hypothyroid Kidney stones Trochanteric bursitis, right hip Surgical History Surgical History H/O repair of left rotator cuff H/O tubal ligation History of cholecystectomy History of tonsillectomy History of total right knee replacement (TKR) Status post right rotator cuff repair Status post total right knee replacement Family History Family History (System 10/30/23 @ 16:25 by Cecil Mena) Mother Cerebrovascular accident Father Diabetes mellitus Sibling Diabetes mellitus Mother Family history of cardiovascular disease Sibling Hypertension Mother Alzheimer disease Father Heart disease Heart attack Other Family history of arthritis Social History Social History (System 10/30/23 @ 16:25 by Cecil Mena) Smoking status: Never smoker Alcohol intake: never Alcohol use details: rare social Substance use: never Substance use type: does not use Do You Feel Safe in your Home?: Yes Lack of Transportation: No Lack of Food: Never True Current Housing: I Have Housing Concerned About Future Housing: No Difficulty Paying Gas/Electric Bills: No Difficulty Paying for Meds: No Currently Unemployed: No Education: High School Diploma/GED Difficulty w/ Childcare or Family Care: No Living arrangements: with family Gender identity (if verbalized by the patient): Female Spiritual care concerns: No Comments At time of signature, agree with nursing past medical, surgical, social
== END 2024-03-08 10:02 | disposition home or self-care (01) ==
PROVIDERS: Emergency Provider Nurse Practitioner Family
DX: U07.1 COVID-19 (principal); E78.00 Pure hypercholesterolemia, unspecified; E03.9 Hypothyroidism, unspecified; M19.90 Unspecified osteoarthritis, unspecified site; H26.9 Unspecified cataract; Z96.651 Presence of right artificial knee joint
CPT/HCPCS: 87426; 87804; 99213; G0463